=== PATIENT | female | born 1995 | race Caucasian/White ===

== ENCOUNTER 2019-03-18 20:21 | Emergency (ER) | payer OTHER ==
[~2019-03-18] VITALS: Ht 170.2 cm; Wt 54.4 kg
[2019-03-18] MEDS ORDERED: TESSALON PERLE100 MG PO (21:25)
[2019-03-18] MEDS ORDERED: MEDROLDOSEPACK PO (21:25)
[2019-03-18 22:18] VITALS: BP 108/69
== END 2019-03-18 22:19 | disposition home or self-care (01) ==
LOC: ER 20:21
DX: J40 Bronchitis, not specified as acute or chronic (principal)